=== PATIENT | male | born 1980 | race African-American/Black ===

== ENCOUNTER 2016-12-29 10:34 | Emergency (ER) | payer SELFPAY ==
[~2016-12-29] VITALS: Ht 172.7 cm; Wt 92.5 kg
[2016-12-29 11:00] VITALS: BP 152/77
== END 2016-12-29 11:35 | disposition home or self-care (01) ==
LOC: ER 10:38
DX: K64.4 Residual hemorrhoidal skin tags (principal)
CPT/HCPCS: 99282; A4606; Z7610